=== PATIENT | male | born 1925 | race Caucasian/White ===

== ENCOUNTER → 2016-12-10 | Outpatient (CLI) | payer MEDICARE ==
[2016-12-10 17:18] LABS: Anion Gap 11 mmol/L; Blood Urea Nitrogen 27 mg/dL (9-20); Calcium 9.4 mg/dL (8.4-10.2); Carbon Dioxide 26 mmol/L (22-30); Chloride 105 mmol/L (98-107); Glucose 90 mg/dL (74-99); Non-African American GFR(MDRD) 57 (>60 ml/min/1.73 sqM); Potassium 4.9 mmol/L (3.5-5.1); Sodium 142 mmol/L (137-145)
--- NOTE | 2016-12-11 08:07 | XR ---
EXAMINATION TYPE: XR chest 2V DATE OF EXAM: 12/10/2016 4:32 PM COMPARISON: 09/20/2016 INDICATION: Shortness of breath TECHNIQUE: Single frontal view of the chest is obtained. FINDINGS: The heart size is normal. The pulmonary vasculature is normal. There is atelectasis of the right middle lobe. Small right pleural effusion is present. IMPRESSION: 1. Right middle lobe atelectasis with a small right pleural effusion
== END | disposition home or self-care (01) ==
LOC: RADXRMAIN 16:09
PROVIDERS: ATTEND Internal Medicine Cardiovascular Disease
DX: J90 Pleural effusion, not elsewhere classified (principal); J98.11 Atelectasis; R06.02 Shortness of breath
CPT/HCPCS: 36415; 71020; 80048; 83880

== ENCOUNTER 2016-12-21 19:47 | Inpatient (IN) | payer MEDICARE ==
[2016-12-21] MEDS ORDERED: ALBUTEROL NEBULIZED 2.5 MG/3 ML INHALATION STA (19:58)
[2016-12-21] MEDS ORDERED: methylPREDNISolone SOD SUCCI 125 MG/2 ML VIAL IV STA (19:58)
[2016-12-21] MEDS ORDERED: IPRATROPIUM 0.5 MG/2.5 ML NEBU INHALATION STA (19:58)
[2016-12-21] MEDS ORDERED: SODIUM CHLORIDE 0.9% 1,000 ML IV STA (19:58)
--- NOTE | 2016-12-21 20:15 | ED ---
General Adult HPI - General Chief complaint: Shortness of Breath Stated complaint: Poss Pneumonia Time Seen by Provider: 12/21/16 19:58 Source: patient, RN notes reviewed, old records reviewed Mode of arrival: wheelchair Limitations: no limitations - History of Present Illness Initial comments: This is an 89-year-old male the ER for evaluation of severe shortness of breath. Patient denies chest pain no travel history of fevers, increased cough and congestion. Patient has history of asthma and severe. She comes in today with sore shortness of breath increasing for the past day and a half worse with exertion worse with activity. Patient is doing Blanca as directed with no help - Related Data Home Medications Medication Instructions Recorded Confirmed Aspirin EC [Ecotrin] 325 mg PO DAILY 09/14/16 12/21/16 Benazepril HCl 40 mg PO DAILY 09/14/16 12/21/16 Cholecalciferol [Vitamin D3] 2,000 unit PO HS 09/14/16 12/21/16 Docusate [Colace] 100 mg PO HS 09/14/16 12/21/16 Ibuprofen [Motrin] 600 mg PO BID 09/14/16 12/21/16 Simvastatin [Zocor] 40 mg PO HS 09/14/16 12/21/16 Zinc 50 mg PO DAILY 09/14/16 12/21/16 Glimepiride [Amaryl] 1 mg PO HS 12/21/16 12/21/16 Previous Rx's Medication Instructions Recorded Metoprolol Succinate (ER) [Toprol 50 mg PO DAILY #30 tab.er.24h 09/17/16 XL] amLODIPine [Norvasc] 5 mg PO HS #30 tab 09/17/16 Furosemide [Lasix] 20 mg PO DAILY #30 tab 09/21/16 Ipratropium-Albuterol Nebulize 3 ml INHALATION RT-QID ampul.neb 09/21/16 [Duoneb 0.5 mg-3 mg/3 ml Soln] Allergies Allergy/AdvReac Type Severity Reaction Status Date / Time No Known Allergies Allergy Verified 12/21/16 20:14 Review of Systems ROS Statement: Those systems with pertinent positive or pertinent negative responses have been documented in the HPI. ROS Other: All systems not noted in ROS Statement are negative. Past Medical History Past Medical History: Asthma, Hypertension, Pneumonia History of Any Multi-Drug Resistant Organisms: None Reported Past Surgical History: Ear Surgery, Joint Replacement, Pacemaker Additional Past Surgical History / Comment(s): valve replacement, bilateral knee , ear drum surgery Past Anesthesia/Blood Transfusion Reactions: No Reported Reaction Type of Cardiac Device: Permanent Pacemaker Device Placement Date:: 09/16/2016 Past Psychological History: No Psychological Hx Reported Smoking Status: Former smoker Past Alcohol Use History: None Reported Past Drug Use History: None Reported - Past Family History Mother Family Medical History: Cancer General Exam Limitations: no limitations General appearance: alert, anxious, in distress Head exam: Present: atraumatic, normocephalic, normal inspection Eye exam: Present: normal appearance, PERRL, EOMI. Absent: scleral icterus, conjunctival injection, periorbital swelling ENT exam: Present: normal exam, mucous membranes moist Neck exam: Present: normal inspection. Absent: tenderness, meningismus, lymphadenopathy Respiratory exam: Present: normal lung sounds bilaterally, respiratory distress , wheezes, accessory muscle use, decreased breath sounds, prolonged expiratory. Absent: rales, rhonchi, stridor Cardiovascular Exam: Present: regular rate, normal rhythm, normal heart sounds. Absent: systolic murmur, diastolic murmur, rubs, gallop, clicks GI/Abdominal exam: Present: soft, normal bowel sounds. Absent: distended, tenderness, guarding, rebound, rigid Extremities exam: Present: normal inspection, full ROM, normal capillary refill. Absent: tenderness, pedal edema, joint swelling, calf tenderness Back exam: Present: normal inspection Neurological exam: Present: alert, oriented X3, CN II-XII intact Psychiatric exam: Present: normal affect, normal mood Skin exam: Present: warm, dry, intact, normal color. Absent: rash Course Vital Signs 12/21/16 12/21/16 12/21/16 19:53 20:06 20:21 Temperature 97.6 F Pulse Rate 72 78 77 Respiratory 28 H Rate Blood Pressure 126/79 O2 Sat by Pulse 91 L Oximetry 12/21/16 12/21/16 12/21/16 20:50 21:11 21:33 Temperature Pulse Rate 80 88 97 Respiratory 28 H Rate Blood Pressure 121/56 O2 Sat by Pulse 95 Oximetry - Reevaluation(s) Reevaluation #1: 12/21/16 21:40 Patient with minimal improvement in her breathing treatment EKG Findings - EKG Comments: EKG Findings:: EKG shows paced rhythm rate of 78, 150, QRS 170, QTc 508 Medical Decision Making - Medical Decision Making 10 and male here for evaluation of shortness of breath, minimal improvement a prolonged breathing treatment, patient days and increased oxygen, possible bipolar, at this time we will hold, patient will be limited for continued breathing treatments, antibiotics for pneumonia - Lab Data Result diagrams: 12/21/16 20:15 12/21/16 20:15 Lab Results 12/21/16 12/21/16 12/21/16 Range/Units 20:15 20:15 20:15 WBC 7.4 (3.8-10.6) k/uL RBC 4.29 L (4.30-5.90) m/uL Hgb 12.9 L (13.0-17.5) gm/dL Hct 39.2 (39.0-53.0) % MCV 91.2 (80.0-100.0) fL MCH 30.0 (25.0-35.0) pg MCHC 32.9 (31.0-37.0) g/dL RDW 18.2 H (11.5-15.5) % Plt Count 155 (150-450) k/uL Neutrophils % 77 % Lymphocytes % 10 % Monocytes % 5 % Eosinophils % 5 % Basophils % 1 % Neutrophils # 5.7 (1.3-7.7) k/uL Lymphocytes # 0.7 L (1.0-4.8) k/uL Monocytes # 0.4 (0-1.0) k/uL Eosinophils # 0.4 (0-0.7) k/uL Basophils # 0.1 (0-0.2) k/uL Anisocytosis Slight PT (9.0-12.0) sec INR (<1.1) APTT (22.0-30.0) sec Sodium 144 (137-145) mmol/L Potassium 4.7 (3.5-5.1) mmol/L Chloride 104 (98-107) mmol/L Carbon Dioxide 28 (22-30) mmol/L Anion Gap 12 mmol/L BUN 26 H (9-20) mg/dL Creatinine 1.31 H (0.66-1.25) mg/dL Est GFR (MDRD) Af Amer >60 (>60 ml/min/1.73 sqM) Est GFR (MDRD) Non-Af 52 (>60 ml/min/1.73 sqM) Glucose 130 H (74-99) mg/dL Calcium 9.2 (8.4-10.2) mg/dL Magnesium 2.0 (1.6-2.3) mg/dL Total Bilirubin 1.2 (0.2-1.3) mg/dL AST 24 (17-59) U/L ALT 27 (21-72) U/L Alkaline Phosphatase 77 (38-126) U/L Total Creatine Kinase 109 (55-170) U/L CK-MB (CK-2) 2.4 (0.0-2.4) ng/mL CK-MB (CK-2) Rel Index 2.2 Troponin I <0.012 (0.000-0.034) ng/mL NT-Pro-B Natriuret Pep pg/mL Total Protein 7.5 (6.3-8.2) g/dL Albumin 3.8 (3.5-5.0) g/dL 12/21/16 12/21/16 Range/Units 20:15 20:15 WBC (3.8-10.6) k/uL RBC (4.30-5.90) m/uL Hgb (13.0-17.5) gm/dL Hct (39.0-53.0) % MCV (80.0-100.0) fL MCH (25.0-35.0) pg MCHC (31.0-37.0) g/dL RDW (11.5-15.5) % Plt Count (150-450) k/uL Neutrophils % % Lymphocytes % % Monocytes % % Eosinophils % % Basophils % % Neutrophils # (1.3-7.7) k/uL Lymphocytes # (1.0-4.8) k/uL Monocytes # (0-1.0) k/uL Eosinophils # (0-0.7) k/uL Basophils # (0-0.2) k/uL Anisocytosis PT 11.4 (9.0-12.0) sec INR 1.1 (<1.1) APTT 23.4 (22.0-30.0) sec Sodium (137-145) mmol/L Potassium (3.5-5.1) mmol/L Chloride (98-107) mmol/L Carbon Dioxide (22-30) mmol/L Anion Gap mmol/L BUN (9-20) mg/dL Creatinine (0.66-1.25) mg/dL Est GFR (MDRD) Af Amer (>60 ml/min/1.73 sqM) Est GFR (MDRD) Non-Af (>60 ml/min/1.73 sqM) Glucose (74-99) mg/dL Calcium (8.4-10.2) mg/dL Magnesium (1.6-2.3) mg/dL Total Bilirubin (0.2-1.3) mg/dL AST (17-59) U/L ALT (21-72) U/L Alkaline Phosphatase (38-126) U/L Total Creatine Kinase (55-170) U/L CK-MB (CK-2) (0.0-2.4) ng/mL CK-MB (CK-2) Rel Index Troponin I (0.000-0.034) ng/mL NT-Pro-B Natriuret Pep 2320 pg/mL Total Protein (6.3-8.2) g/dL Albumin (3.5-5.0) g/dL - Radiology Data Radiology results: report reviewed (Chest x-ray is positive for pneumonia), image reviewed Critical Care Time Critical Care Time: Yes Total Critical Care Time: 31 Disposition Clinical Impression: Diastolic CHF, acute on chronic, HTN (hypertension), Acute respiratory failure , Congestive heart failure, Acute exacerbation of chronic obstructive airways disease, Community acquired pneumonia, Hypoxia Disposition: ADMITTED IP TO THIS HOSP Condition: Serious Referrals: Donal Greenberg MD [Primary Care Provider] - 1-2 days
[2016-12-21 20:40] LABS: ALT 27 U/L (21-72); AST 24 U/L (17-59); Alkaline Phosphatase 77 U/L (38-126); Anion Gap 12 mmol/L; Anisocytosis Slight; Basophils # (A) 0.1 k/uL (0-0.2); Basophils % (A) 1 %; Blood Urea Nitrogen 26 mg/dL (9-20); CH 29.6; CHCM 32.7; Calcium 9.2 mg/dL (8.4-10.2); Carbon Dioxide 28 mmol/L (22-30); Chloride 104 mmol/L (98-107); Eosinophils # (A) 0.4 k/uL (0-0.7); Eosinophils % (A) 5 %; Glucose 130 mg/dL (74-99); HCT 39.2 % (39.0-53.0); HDW 3.12; HGB 12.9 gm/dL (13.0-17.5); Luc # (Auto) 0.16; Luc % (Auto) 2; Lymphocytes # (A) 0.7 k/uL (1.0-4.8); Lymphocytes % (A) 10 %; MCHC 32.9 g/dL (31.0-37.0); MCV 91.2 fL (80.0-100.0); Mean Platelet Volume 8.8; Monocytes # (A) 0.4 k/uL (0-1.0); Monocytes % (A) 5 %; Neutrophils # (A) 5.7 k/uL (1.3-7.7); Neutrophils % (A) 77 %; Non-African American GFR(MDRD) 52 (>60 ml/min/1.73 sqM); Potassium 4.7 mmol/L (3.5-5.1); RBC 4.29 m/uL (4.30-5.90); RDW 18.2 % (11.5-15.5); Sodium 144 mmol/L (137-145); Total Bilirubin 1.2 mg/dL (0.2-1.3); Total Protein 7.5 g/dL (6.3-8.2); WBC 7.4 k/uL (3.8-10.6); WBC (Perox) 7.47
[2016-12-21 20:43] LABS: INR 1.1 (<1.1); Partial Thromboplastin Time 23.4 sec (22.0-30.0); Prothrombin Time 11.4 sec (9.0-12.0)
[2016-12-21 20:49] LABS: Creatine Kinase 109 U/L (55-170)
[2016-12-21 21:02] LABS: Creatine Kinase MB 2.4 ng/mL (0.0-2.4); Troponin I <0.012 ng/mL (0.000-0.034)
--- NOTE | 2016-12-21 21:35 | XR ---
EXAMINATION TYPE: XR chest 2V DATE OF EXAM: 12/21/2016 9:26 PM COMPARISON: 12/10/2016 HISTORY: Shortness of breath TECHNIQUE: Frontal and lateral views of the chest are obtained. FINDINGS: Scattered senescent parenchymal changes noted. Hyperinflation compatible with COPD. Increasing right basilar opacity may reflect increasing infiltrate and/or atelectasis. Small bilatera l effusions. Calcified plaque left lung base. Pulmonary venous congestion without overt failure. Wilbert tional scattered plaques. Heart size is stable. Mediastinal structures are stable and grossly unremarkable. No evidence for hilar prominence. Degenerative changes dorsal spine. IMPRESSION: 1. Increasing right basilar opacity may reflect increasing infiltrate and/or atelectasis. Small bilat eral effusions. Calcified plaque left lung base. Pulmonary venous congestion without overt failure.
[2016-12-21] MEDS ORDERED: LEVOFLOXACIN 750MG-D5W PMX 750 MG in DEXTROSE/WATER 1 150ML.BAG IVPB STA (21:37)
[2016-12-21] MEDS ORDERED: PNEUMONIA PROTOCOL UTILIZED 1 EACH MISC PO PRN (21:37)
[2016-12-21] MEDS ORDERED: PIPERACILLIN-TAZOBACTAM 3.375 GM in DEXTROSE/WATER 1 50ML.BAG IVPB STA ×2 (21:37→23:57)
--- NOTE | 2016-12-22 07:47 | XR ---
EXAMINATION TYPE: XR chest 2V DATE OF EXAM: 12/22/2016 7:16 AM COMPARISON: Prior chest x-ray from yesterday. HISTORY: Pneumonia progress study. TECHNIQUE: Frontal and lateral views of the chest are obtained. FINDINGS: Sternal wires are present. 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 Cardiac silhouette size is stable and mildly enlarged with dual lead pacemaker. There is persistent small right greater than le ft pleural effusions. There is associated bibasilar atelectasis and/or infiltrate. Left basilar calci fied pleural plaque is redemonstrated Upper lungs remain clear without pneumothorax. The osseous stru ctures are intact. IMPRESSION: Mild cardiomegaly with small right greater than left pleural effusions and associated bi basilar atelectasis and/or infiltrate all redemonstrated.
[2016-12-22] MEDS ORDERED: IPRATROPIUM-ALBUTEROL 3 ML NEB INHALATION SCH (08:00)
[2016-12-22] MEDS: ENOXAPARIN 40 MG/0.4 ML SYRINGE SQ SCH (08:17)
[2016-12-22] MEDS: PIPERACILLIN-TAZOBACTAM 3.375 GM in DEXTROSE/WATER 1 50ML.BAG IVPB SCH ×3 (08:17→23:58)
[2016-12-22] MEDS ORDERED: IPRATROPIUM-ALBUTEROL 3 ML NEB INHALATION PRN (08:20)
[2016-12-22] MEDS: methylPREDNISolone SOD SUCCI 40 MG/ML 1 ML VIAL IV SCH ×3 (09:09→23:58)
[2016-12-22 09:23] VITALS: BMI 29.0
[2016-12-22 12:01] LABS: Glucose,Whole Blood 297 mg/dL (75-99)
[2016-12-22] MEDS: INSULIN LISPRO (humaLOG) 300 UNIT/3 ML VIAL SQ SCH ×3 (12:18→21:16)
[2016-12-22] MEDS: IPRATROPIUM-ALBUTEROL 3 ML NEB INHALATION SCH ×3 (14:09→20:26)
[2016-12-22 16:51] LABS: Glucose,Whole Blood 177 mg/dL (75-99)
--- NOTE | 2016-12-22 18:20 | HP ---
DATE OF ADMISSION: 12/21/2016 CHIEF COMPLAINT: Difficulty breathing. HISTORY OF PRESENT ILLNESS: This is another admission for this 89-year-old white male. He started to have difficulty breathing and came to the emergency room, where he was found to have bronchopneumonia and small bilateral pleural effusions. He has had no fever, chills, hemoptysis, chest pain, etc. REVIEW OF SYSTEMS: He has had no complaints other than the above-mentioned. He does have chronic asthma. Past medical history, family history, and personal and social histories reveal that he is NOT ALLERGIC TO ANY MEDICATIONS. He is on: 1. Metoprolol ER 50 mg once a day. 2. Updrafts with ipratropium and albuterol. 3. Lasix 20 mg once a day. 4. Simvastatin 40 at bedtime. 5. Benazepril 40 mg once a day. 6. Amlodipine 5 mg once a day. 7. Ecotrin 1 daily. 8. Vitamin D3 2000 units a day. The remainder of his history is unremarkable. He used to smoke but does not any longer. PHYSICAL EXAMINATION: Blood pressure 140/86 with a pulse of 94 and regular, respirations of 46 and temperature 98. In general he appeared to be dyspneic and in no acute distress. Skin is warm and dry. Lymph nodes are not enlarged. Head, ears, eyes, nose, mouth and throat were normal. Neck veins are not distended. Thyroid is not enlarged. Chest demonstrated decreased breath sounds throughout with wheezing, rales and rhonchi and a prolonged expiratory phase. Cardiac exam demonstrated tachycardia. There are no murmurs or extra sounds. Abdomen is soft, nontender and slightly protuberant. There are no masses or visceromegaly. Extremities are normal. Neurologically he is intact. He is admitted to the hospital with the diagnoses: 1. Exacerbation of chronic obstructive pulmonary disease. 2. Reactive airway disease. 3. Small bilateral pleural effusions. 4. Probable pneumonitis. PLAN: 1. Bed rest. 2. IV fluids. 3. IV and inhaled steroids. 4. Antibiotics.
--- NOTE | 2016-12-22 18:22 | PN ---
DATE OF SERVICE: 12/22/2016 CHIEF COMPLAINT: Exacerbation of COPD and pneumonia. HISTORY OF PRESENT ILLNESS: This gentleman is feeling a little bit better already. He is a little bit less short of breath. He has had no chest pain, fever, chills, etc. PHYSICAL EXAMINATION: Breath sounds are diminished and he has wheezing on expiration and prolonged expiratory phase. Cardiac exam is normal. IMPRESSION: 1. Exacerbation of chronic obstructive pulmonary disease. 2. Pneumonitis. 3. Pleural effusions. 4. Congestive heart failure. PLAN: Continue updrafts, steroids and activity as tolerated.
[2016-12-22] MEDS: DOCUSATE 100 MG CAP PO SCH (20:02)
[2016-12-22] MEDS: ATORVASTATIN 20 MG TAB PO SCH (20:02)
[2016-12-22] MEDS: CHOLECALCIFEROL 1,000 UNIT TAB PO SCH (20:02)
[2016-12-22] MEDS: IBUPROFEN 600 MG TAB PO SCH (20:03)
[2016-12-22 20:47] LABS: Glucose,Whole Blood 198 mg/dL (75-99)
[2016-12-22] MEDS ORDERED: LEVOFLOXACIN 750MG-D5W PMX 750 MG in DEXTROSE/WATER 1 150ML.BAG IVPB SCH (21:00)
[2016-12-22] MEDS ORDERED: amLODIPine 5 MG TAB PO SCH (21:00)
[2016-12-22] MEDS: GLIMEPIRIDE 1 MG TAB PO SCH (21:16)
[2016-12-23] MEDS: IPRATROPIUM-ALBUTEROL 3 ML NEB INHALATION SCH ×4 (07:22→20:11)
[2016-12-23] MEDS: INSULIN LISPRO (humaLOG) 300 UNIT/3 ML VIAL SQ SCH ×4 (07:43→21:25)
[2016-12-23] MEDS: methylPREDNISolone SOD SUCCI 40 MG/ML 1 ML VIAL IV SCH ×3 (07:44→23:23)
[2016-12-23 08:00] LABS: Glucose,Whole Blood 198 mg/dL (75-99)
[2016-12-23] MEDS: IBUPROFEN 600 MG TAB PO SCH ×2 (08:27→22:17)
[2016-12-23] MEDS: ASPIRIN 325 MG TAB PO SCH (08:29)
[2016-12-23] MEDS: PIPERACILLIN-TAZOBACTAM 3.375 GM in DEXTROSE/WATER 1 50ML.BAG IVPB SCH ×2 (08:29→21:50)
[2016-12-23] MEDS: ENOXAPARIN 40 MG/0.4 ML SYRINGE SQ SCH (08:30)
[2016-12-23] MEDS ORDERED: FUROSEMIDE 20 MG TAB PO SCH (09:00)
[2016-12-23] MEDS ORDERED: METOPROLOL SUCCINATE (ER) 50 MG TAB.ER.24H PO SCH (09:00)
[2016-12-23] MEDS ORDERED: LISINOPRIL 20 MG TAB PO SCH (09:00)
[2016-12-23 09:58] LABS: Anisocytosis Slight; Basophils % (A) 0 %; CH 29.6; CHCM 31.4; Eosinophils % (A) 0 %; HCT 38.3 % (39.0-53.0); HDW 2.96; HGB 12.1 gm/dL (13.0-17.5); Hypochromasia Slight; Luc # (Auto) 0.07; Luc % (Auto) 0; Lymphocytes # (A) 0.5 k/uL (1.0-4.8); Lymphocytes % (A) 3 %; MCH 29.9 pg (25.0-35.0); MCHC 31.5 g/dL (31.0-37.0); MCV 95.1 fL (80.0-100.0); Macrocytosis Slight; Monocytes # (A) 0.4 k/uL (0-1.0); Monocytes % (A) 3 %; Neutrophils # (A) 14.4 k/uL (1.3-7.7); Neutrophils % (A) 93 %; RBC 4.03 m/uL (4.30-5.90); RDW 18.7 % (11.5-15.5); WBC 15.4 k/uL (3.8-10.6)
[2016-12-23] MEDS ORDERED: FUROSEMIDE 10 MG/ML 4 ML VIAL IV STA (09:59)
[2016-12-23 10:04] LABS: Calcium 9.3 mg/dL (8.4-10.2); Magnesium 2.1 mg/dL (1.6-2.3); Potassium 5.2 mmol/L (3.5-5.1); Total Bilirubin 1.1 mg/dL (0.2-1.3); Total Protein 7.6 g/dL (6.3-8.2)
[2016-12-23] MEDS ORDERED: LEVOFLOXACIN 500 MG TAB PO SCH (10:15)
[2016-12-23] MEDS ORDERED: RX INFO: IV CONTRAST WAS GIVEN 1 EACH MISC MISCELLANE PRN (10:33)
[2016-12-23] MEDS: SPIRONOLACTONE 25 MG TAB PO SCH (10:35)
--- NOTE | 2016-12-23 13:00 | NM ---
EXAMINATION TYPE: NM pul vent and perfuse DATE OF EXAM: 12/23/2016 12:52 PM COMPARISON: Correlation radiographs 12/22/2016 HISTORY: 89-year-old male increased shortness of breath TECHNIQUE: Utilizing inhalation of 63.3 mCi Tc 99m DTPA aerosol and intravenous injection of 5.5 mCi of Tc 99m MAA, ventilation and perfusion images are acquired post injection in multiple projections. FINDINGS: There is clumping of inhaled tracer within the central airways. There is a moderate-sized matched guille tilation and perfusion defect involving the posterior right base with corresponding chest x-ray abnor mality. Otherwise, no mismatched perfusion defects seen. IMPRESSION: Triple matched defect at the right base. This qualifies as an intermediate probability for pulmonary embolism based on modified PIOPED criteria.
[2016-12-23 13:03] LABS: Glucose,Whole Blood 274 mg/dL (75-99)
[2016-12-23] MEDS: ZINC SULFATE 220 MG CAP PO SCH (13:20)
--- NOTE | 2016-12-23 14:40 | US ---
EXAMINATION TYPE: US venous doppler duplex LE DATE OF EXAM: 12/23/2016 2:26 PM COMPARISON: See PACS bilateral venous ultrasound August 01, 2012. CLINICAL HISTORY: Rule out a DVT. Swelling SIDE PERFORMED: Bilateral VESSELS IMAGED: External Iliac Vein (EIV) Common Femoral Vein Deep Femoral Vein Greater Saphenous Vein * Femoral Vein Popliteal Vein Small Saphenous Vein * Proximal Calf Veins (* superficial vessels) TECHNOLOGIST IMPRESSION: wnl Right Leg: Negative for DVT Left Leg: Negative for DVT Satisfactory color flow, phasicity, and compressibility is seen in the bilateral lower extremities. IMPRESSION: No ultrasound evidence for acute DVT in either lower extremity.
[2016-12-23 17:09] LABS: Glucose,Whole Blood 100 mg/dL (75-99)
[2016-12-23] MEDS: CARVEDILOL 3.125 MG TAB PO SCH (17:17)
[2016-12-23] MEDS: BUDESONIDE 0.5 MG/2 ML NEBU INHALATION SCH ×2 (20:11)
--- NOTE | 2016-12-23 20:57 | PN ---
CHIEF COMPLAINT: COPD and congestive heart failure. HISTORY OF PRESENT ILLNESS: This gentleman is improved slightly, but we are going to increase his program. PHYSICAL EXAM: He still has decreased breath sounds with occasional rales and rhonchi and occasional wheezes. Cardiac is normal. There is no edema. IMPRESSION: 1. Exacerbation of chronic obstructive pulmonary disease. 2. Congestive heart failure. PLAN: 1. Change beta kayla to Coreg. 2. Add Aldactone.
[2016-12-23] MEDS ORDERED: MONTELUKAST 10 MG TAB PO SCH (21:00)
[2016-12-23] MEDS: MONTELUKAST 10 MG TAB PO SCH (21:46)
[2016-12-23] MEDS: ATORVASTATIN 20 MG TAB PO SCH (21:48)
[2016-12-23] MEDS: DOCUSATE 100 MG CAP PO SCH (21:48)
[2016-12-23] MEDS: CHOLECALCIFEROL 1,000 UNIT TAB PO SCH (21:48)
[2016-12-23] MEDS: ENOXAPARIN 30 MG/0.3 ML SYRINGE SQ SCH (21:49)
[2016-12-23 21:50] LABS: Glucose,Whole Blood 74 mg/dL (75-99)
[2016-12-23] MEDS: GLIMEPIRIDE 1 MG TAB PO SCH (22:10)
[2016-12-24] MEDS: BUDESONIDE 0.5 MG/2 ML NEBU INHALATION SCH ×2 (07:06→18:38)
[2016-12-24] MEDS: IPRATROPIUM-ALBUTEROL 3 ML NEB INHALATION SCH ×4 (07:06→18:38)
[2016-12-24 07:44] LABS: Glucose,Whole Blood 159 mg/dL (75-99)
[2016-12-24] MEDS: INSULIN LISPRO (humaLOG) 300 UNIT/3 ML VIAL SQ SCH ×4 (07:47→21:43)
[2016-12-24] MEDS: methylPREDNISolone SOD SUCCI 40 MG/ML 1 ML VIAL IV SCH ×3 (07:48→23:27)
[2016-12-24] MEDS: CARVEDILOL 3.125 MG TAB PO SCH ×2 (07:48→16:53)
[2016-12-24] MEDS: IBUPROFEN 600 MG TAB PO SCH ×2 (08:44→21:13)
[2016-12-24] MEDS: ASPIRIN 325 MG TAB PO SCH (08:46)
[2016-12-24] MEDS: ENOXAPARIN 30 MG/0.3 ML SYRINGE SQ SCH ×2 (08:46→21:22)
[2016-12-24] MEDS: FUROSEMIDE 40 MG TAB PO SCH (08:46)
[2016-12-24] MEDS: PIPERACILLIN-TAZOBACTAM 3.375 GM in DEXTROSE/WATER 1 50ML.BAG IVPB SCH ×2 (08:47→21:22)
[2016-12-24] MEDS ORDERED: ENOXAPARIN 30 MG/0.3 ML SYRINGE SQ SCH (09:00)
[2016-12-24 10:06] LABS: Calcium 9.4 mg/dL (8.4-10.2); Potassium 5.3 mmol/L (3.5-5.1); Total Bilirubin 1.1 mg/dL (0.2-1.3); Total Protein 7.6 g/dL (6.3-8.2)
[2016-12-24] MEDS: LISINOPRIL 20 MG TAB PO SCH (10:17)
[2016-12-24] MEDS: SPIRONOLACTONE 25 MG TAB PO SCH (10:29)
[2016-12-24] MEDS: amLODIPine 2.5 MG TAB PO SCH (10:30)
[2016-12-24] MEDS: ZINC SULFATE 220 MG CAP PO SCH (11:14)
--- NOTE | 2016-12-24 11:24 | P.CNPUL ---
History of Present Illness Consult date: 12/24/16 Requesting physician: Donal Greenberg Reason for consult: COPD Chief complaint: Shortness of breath History of present illness: This is an 89-year-old male who is being examined and evaluated today on the fourth floor. The patient came in to the emergency room on the for severe shortness of breath. The patient has a history of chronic persistent asthma. Shortness of breath gets worse with activity and his breathing treatments have not been helping. Patient was subsequently admitted to the hospital with acute exacerbation of COPD, community-acquired pneumonia with hypoxia, diastolic congestive heart failure and acute respiratory failure. Patient underwent a pulmonary perfusion test there was a intermediate probability for pulmonary embolism based on PIOPED criteria. The patient is currently on Lovenox. Doppler studies of bilateral lower extremities were both negative for DVTs. Upon examination the patient is resting up in bed on 3 L of oxygen, the patient does not use oxygen at home. The patient states he continues to have an occasional cough with clear sputum. Review of Systems 14 point review of systems completed and is negative other than what is noted in the HPI. Past Medical History Past Medical History: Asthma, Hypertension, Pneumonia History of Any Multi-Drug Resistant Organisms: None Reported Past Surgical History: Ear Surgery, Joint Replacement, Pacemaker Additional Past Surgical History / Comment(s): valve replacement, bilateral knee , ear drum surgery Past Anesthesia/Blood Transfusion Reactions: No Reported Reaction Type of Cardiac Device: Permanent Pacemaker Device Placement Date:: 09/16/2016 Past Psychological History: No Psychological Hx Reported Smoking Status: Former smoker Past Alcohol Use History: None Reported Past Drug Use History: None Reported - Past Family History Mother Family Medical History: Cancer Medications and Allergies Home Medications Medication Instructions Recorded Confirmed Type Aspirin EC [Ecotrin] 325 mg PO DAILY 09/14/16 12/21/16 History Benazepril HCl 40 mg PO DAILY 09/14/16 12/21/16 History Cholecalciferol [Vitamin D3] 2,000 unit PO HS 09/14/16 12/21/16 History Docusate [Colace] 100 mg PO HS 09/14/16 12/21/16 History Ibuprofen [Motrin] 600 mg PO BID 09/14/16 12/21/16 History Simvastatin [Zocor] 40 mg PO HS 09/14/16 12/21/16 History Zinc 50 mg PO DAILY 09/14/16 12/21/16 History Glimepiride [Amaryl] 1 mg PO HS 12/21/16 12/21/16 History Allergies Allergy/AdvReac Type Severity Reaction Status Date / Time No Known Allergies Allergy Verified 12/21/16 20:14 Physical Exam Vitals: Vital Signs Temp Pulse Pulse Resp BP Pulse Ox 12/24/16 09:50 95 12/24/16 07:17 76 12/24/16 07:00 96.3 F L 71 67 20 144/67 98 12/23/16 22:07 98.3 F 77 16 123/75 98 12/23/16 20:11 88 12/23/16 15:28 86 12/23/16 15:15 86 12/23/16 15:00 96.1 F L 76 20 117/62 97 12/23/16 11:23 88 Intake and Output 12/23/16 12/24/16 12/24/16 22:59 06:59 14:59 Intake Total 0 100 Balance 0 100 Intake: Oral 0 100 Other: Voiding Method Toilet Toilet # Voids 1 4 Weight 82.5 kg GENERAL EXAM: Alert, active, comfortable in no apparent distress. HEAD: Normocephalic. EYES: Normal reaction of pupils, equal size. NOSE: Clear with pink turbinates. THROAT: No erythema or exudates. NECK: No masses, no JVD. CHEST: No chest wall deformity. LUNGS: Lung sounds noted to be decreased throughout, with expiratory wheezing and rhonchi. CVS: S1 and S2 normal with no audible mumurs, regular rhythm. ABDOMEN: No hepatosplenomegaly, normal bowel sounds, no guarding or rigidity. EXTREMITIES: No edema noted, pedal pulses palpable. SKIN: No rashes CENTRAL NERVOUS SYSTEM: No focal deficits, tone is normal in all 4 extremities. Results - Laboratory Findings CBC and BMP: 12/23/16 08:52 12/24/16 08:22 PT/INR, D-dimer PT 11.4 sec (9.0-12.0) 12/21/16 20:15 INR 1.1 (<1.1) 12/21/16 20:15 D-Dimer 1.01 mg/L FEU (<0.60) H 12/23/16 09:30 Abnormal lab findings: Abnormal Labs 12/22/16 12/22/1617 11:59 16:49 20:41 WBC RBC Hgb Hct RDW Neutrophils # Lymphocytes # D-Dimer Potassium BUN Creatinine Glucose POC Glucose (mg/dL) 297 H 177 H 198 H 12/23/16 12/23/16 12/23/16 07:18 08:52 08:52 WBC 15.4 H RBC 4.03 L Hgb 12.1 L Hct 38.3 L RDW 18.7 H Neutrophils # 14.4 H Lymphocytes # 0.5 L D-Dimer Potassium 5.2 H BUN 60 H Creatinine 2.36 H Glucose 262 H POC Glucose (mg/dL) 198 H 12/23/16 12/23/16 12/23/16 09:30 13:00 17:04 WBC RBC Hgb Hct RDW Neutrophils # Lymphocytes # D-Dimer 1.01 H Potassium BUN Creatinine Glucose POC Glucose (mg/dL) 274 H 100 H 12/23/16 12/24/16 12/24/16 21:24 07:28 08:22 WBC RBC Hgb Hct RDW Neutrophils # Lymphocytes # D-Dimer Potassium 5.3 H BUN 68 H Creatinine 2.29 H Glucose 208 H POC Glucose (mg/dL) 74 L 159 H - Diagnostic Findings Chest x-ray: report reviewed CT scan - chest: report reviewed U/S of Legs: report reviewed Assessment and Plan Plan: Assessment Acute exacerbation of chronic obstructive pulmonary disease Chronic persistent asthma with acute exacerbation Small bilateral pleural effusions Probable community-acquired pneumonia History of hypertension Plan Medications have been reviewed and will be continued as ordered. We will continue with the IV steroids, antibiotics, and nebulizer treatments as well as supplemental oxygen. We will continue to monitor labs and adjust treatment as necessary. I performed an examination of the patient and discussed their management with the nurse practitioner. I have reviewed the nurse practitioner's note and agree with the documented findings and plan of care.
[2016-12-24 12:03] LABS: Glucose,Whole Blood 223 mg/dL (75-99)
[2016-12-24 17:00] LABS: Glucose,Whole Blood 110 mg/dL (75-99)
[2016-12-24 20:56] LABS: Glucose,Whole Blood 157 mg/dL (75-99)
--- NOTE | 2016-12-24 20:58 | PN ---
DATE OF SERVICE: 12/24/2016 CHIEF COMPLAINT: Difficulty breathing. HISTORY OF PRESENT ILLNESS: The gentleman is doing a little bit better. He has diuresed some and his breathing has improved. He is able to ambulate a little further without oxygen. PHYSICAL EXAMINATION: His chest is fairly clear now. There is no wheezing and there are no rales or rhonchi. Cardiac exam is normal. ABDOMEN: Soft, nontender. IMPRESSION: 1. Exacerbation of chronic obstructive pulmonary disease. 2. Congestive heart failure. PLAN: Continue with diuresis and increasing activity.
[2016-12-24] MEDS: GLIMEPIRIDE 1 MG TAB PO SCH (21:14)
[2016-12-24] MEDS: MONTELUKAST 10 MG TAB PO SCH (21:14)
[2016-12-24] MEDS: CHOLECALCIFEROL 1,000 UNIT TAB PO SCH (21:14)
[2016-12-24] MEDS: DOCUSATE 100 MG CAP PO SCH (21:14)
[2016-12-24] MEDS: ATORVASTATIN 20 MG TAB PO SCH (21:14)
[2016-12-25 06:57] LABS: Glucose,Whole Blood 139 mg/dL (75-99)
[2016-12-25] MEDS: IPRATROPIUM-ALBUTEROL 3 ML NEB INHALATION SCH ×4 (07:06→19:37)
[2016-12-25] MEDS: BUDESONIDE 0.5 MG/2 ML NEBU INHALATION SCH ×2 (07:06→19:37)
[2016-12-25] MEDS: PIPERACILLIN-TAZOBACTAM 3.375 GM in DEXTROSE/WATER 1 50ML.BAG IVPB SCH ×2 (07:49→20:04)
[2016-12-25] MEDS: methylPREDNISolone SOD SUCCI 40 MG/ML 1 ML VIAL IV SCH ×2 (07:50→17:31)
[2016-12-25] MEDS: INSULIN LISPRO (humaLOG) 300 UNIT/3 ML VIAL SQ SCH ×4 (07:50→21:17)
[2016-12-25] MEDS: LEVOFLOXACIN 500 MG TAB PO SCH (07:51)
[2016-12-25] MEDS: CARVEDILOL 3.125 MG TAB PO SCH ×2 (07:51→17:31)
[2016-12-25] MEDS: LISINOPRIL 20 MG TAB PO SCH (07:51)
[2016-12-25] MEDS: SPIRONOLACTONE 25 MG TAB PO SCH (07:51)
[2016-12-25] MEDS: ASPIRIN 325 MG TAB PO SCH (07:51)
[2016-12-25] MEDS: FUROSEMIDE 40 MG TAB PO SCH (07:52)
[2016-12-25] MEDS: amLODIPine 2.5 MG TAB PO SCH (07:52)
[2016-12-25] MEDS: ENOXAPARIN 30 MG/0.3 ML SYRINGE SQ SCH (07:53)
[2016-12-25] MEDS: IBUPROFEN 600 MG TAB PO SCH (07:59)
[2016-12-25 09:02] LABS: Calcium 9.4 mg/dL (8.4-10.2); Potassium 4.8 mmol/L (3.5-5.1); Total Bilirubin 1.1 mg/dL (0.2-1.3); Total Protein 7.2 g/dL (6.3-8.2)
[2016-12-25 12:28] LABS: Glucose,Whole Blood 242 mg/dL (75-99)
[2016-12-25] MEDS: ZINC SULFATE 220 MG CAP PO SCH (12:28)
[2016-12-25 16:53] LABS: Glucose,Whole Blood 91 mg/dL (75-99)
--- NOTE | 2016-12-25 17:01 | PN ---
DATE OF SERVICE: 12/25/2016 CHIEF COMPLAINT: Congestive heart failure. HISTORY OF PRESENT ILLNESS: This gentleman is doing a little bit better and he is not short of breath. PHYSICAL EXAMINATION: Breath sounds are much improved. There are few rales and rhonchi. The cardiac exam is unremarkable. Abdomen is soft. IMPRESSION: Congestive heart failure. PLAN: Continue with diuresis and management of his CHF. He is increasing his activity and he will probably be able to go home in 2 to 3 days.
[2016-12-25] MEDS: DOCUSATE 100 MG CAP PO SCH (20:09)
[2016-12-25] MEDS: GLIMEPIRIDE 1 MG TAB PO SCH (20:09)
[2016-12-25] MEDS: CHOLECALCIFEROL 1,000 UNIT TAB PO SCH (20:09)
[2016-12-25] MEDS: ATORVASTATIN 20 MG TAB PO SCH (20:09)
[2016-12-25] MEDS: HEPARIN SODIUM,PORCINE 5,000 UNIT/ML 1 ML VIAL SQ SCH (20:10)
[2016-12-25] MEDS: MONTELUKAST 10 MG TAB PO SCH (20:10)
[2016-12-25 21:42] LABS: Glucose,Whole Blood 145 mg/dL (75-99)
[2016-12-26] MEDS: methylPREDNISolone SOD SUCCI 40 MG/ML 1 ML VIAL IV SCH ×4 (00:25→23:12)
[2016-12-26 07:06] LABS: Glucose,Whole Blood 134 mg/dL (75-99)
[2016-12-26] MEDS: BUDESONIDE 0.5 MG/2 ML NEBU INHALATION SCH ×2 (08:14→21:07)
[2016-12-26] MEDS: IPRATROPIUM-ALBUTEROL 3 ML NEB INHALATION SCH ×4 (08:14→21:02)
[2016-12-26] MEDS: CARVEDILOL 3.125 MG TAB PO SCH ×2 (08:31→17:32)
[2016-12-26] MEDS: INSULIN LISPRO (humaLOG) 300 UNIT/3 ML VIAL SQ SCH ×4 (08:31→21:43)
[2016-12-26] MEDS: FUROSEMIDE 40 MG TAB PO SCH (09:22)
[2016-12-26] MEDS: amLODIPine 2.5 MG TAB PO SCH (09:22)
[2016-12-26] MEDS: ASPIRIN 325 MG TAB PO SCH (09:22)
[2016-12-26] MEDS: SPIRONOLACTONE 25 MG TAB PO SCH (09:22)
[2016-12-26] MEDS: PIPERACILLIN-TAZOBACTAM 3.375 GM in DEXTROSE/WATER 1 50ML.BAG IVPB SCH ×3 (09:22→23:12)
[2016-12-26] MEDS: LISINOPRIL 20 MG TAB PO SCH (09:22)
[2016-12-26] MEDS: HEPARIN SODIUM,PORCINE 5,000 UNIT/ML 1 ML VIAL SQ SCH ×2 (09:22→21:15)
[2016-12-26 10:16] LABS: Calcium 9.7 mg/dL (8.4-10.2); Potassium 4.7 mmol/L (3.5-5.1); Total Bilirubin 1.1 mg/dL (0.2-1.3); Total Protein 7.1 g/dL (6.3-8.2)
--- NOTE | 2016-12-26 11:21 | PN ---
DATE OF SERVICE: 12/25/2016 ADDENDUM: It appears that acute renal failure, has been associated with NSAID as they have been started on scheduled doses since December 22. Renal function on December 21 was 26/1.31. BUN and creatinine went up to 16 and 2.36. We will discontinue the NSAIDs for now and maintain on the KOBI inhibitors and monitor renal functions closely. Will maintain her current dose of diuretics as well. Will follow.
--- NOTE | 2016-12-26 11:21 | PN ---
Mr. Pina is a pleasant 89-year-old male who was seen, evaluated, examined on fourth floor. His respiratory status is relatively much better. Breathing more comfortably. Denies any chest pain. He remains on broad-spectrum antibiotics. His last set of vitals include blood pressure is 139/73, respiratory rate 18, pulse 70, temperature 98, sating 95%. HEENT: Unremarkable. NECK: Supple. LUNGS: Good air entry bilaterally with very fine expiratory wheezing. HEART: Regular rate and rhythm. S1 and S2 audible. ABDOMEN: Soft. No rebound or rigidity. EXTREMITIES: +1 peripheral pulses. NEUROLOGICAL EXAMINATION: Otherwise, awake and alert. Sputum studies revealed normal respiratory baljit. The blood cultures no growth so far. Other laboratory data reviewed. Chemistry shows BUN and creatinine 72 and 2.06, which is slowly improving. Creatinine is down from 2.36 48 hours ago. Medications reviewed and include: DuoNeb unit dose 4 times a day, amlodipine 2.5 mg daily, aspirin 325 mg daily, Lipitor 20 mg daily, Pulmicort 2 times a day, Coreg 3.125 mg 2 times a day, vitamin D3, Colace, Lovenox, Lasix 40 mg daily, Amaryl 1 mg at bedtime, Motrin, sliding scale insulin, Levaquin 500 mg every other day, Zestril, Solu-Medrol 40 q.8, Zosyn 3.375 q.12 hourly, Aldactone and zinc. The duplex ultrasound of the lower extremity is negative for DVT bilaterally. VQ scan performed 12/23/16 matched defects in right base are seen. The chest x-ray performed on 12/22/16 reviewed as well; cardiomegaly, small right pleural effusion is seen and basal subsegmental atelectasis, which could explain findings on the VQ scan. IMPRESSION: 1. Right lower lobe pneumonia. Continue broad-spectrum antibiotics. 2. Small bilateral pleural effusion likely related to above as well as component of congestive heart failure, likely acute on chronic diastolic heart failure. 3. Dyslipidemia. 4. Coronary artery disease. 5. Small bilateral pleural effusion. 6. Chronic persistent asthma. PLAN AND RECOMMENDATION: Continue antibiotics, steroids, breathing treatment. Continue supportive care. Will maintain patient on DVT and peptic ulcer disease prophylaxis. Monitor renal functions closely. Will follow.
[2016-12-26 11:52] LABS: Glucose,Whole Blood 170 mg/dL (75-99)
[2016-12-26] MEDS: ZINC SULFATE 220 MG CAP PO SCH (12:17)
[2016-12-26 17:29] LABS: Glucose,Whole Blood 210 mg/dL (75-99)
[2016-12-26] MEDS: CHOLECALCIFEROL 1,000 UNIT TAB PO SCH (21:15)
[2016-12-26] MEDS: MONTELUKAST 10 MG TAB PO SCH (21:15)
[2016-12-26] MEDS: DOCUSATE 100 MG CAP PO SCH (21:15)
[2016-12-26] MEDS: ATORVASTATIN 20 MG TAB PO SCH (21:15)
[2016-12-26 21:35] LABS: Glucose,Whole Blood 156 mg/dL (75-99)
[2016-12-26] MEDS: GLIMEPIRIDE 1 MG TAB PO SCH (21:43)
[2016-12-27 07:17] LABS: Glucose,Whole Blood 136 mg/dL (75-99)
[2016-12-27 07:46] VITALS: BP 155/76; RESP 19; TEMP 96.9
[2016-12-27] MEDS: methylPREDNISolone SOD SUCCI 40 MG/ML 1 ML VIAL IV SCH (07:50)
[2016-12-27] MEDS: LISINOPRIL 20 MG TAB PO SCH (07:51)
[2016-12-27] MEDS: amLODIPine 2.5 MG TAB PO SCH (07:51)
[2016-12-27] MEDS: LEVOFLOXACIN 500 MG TAB PO SCH (07:51)
[2016-12-27] MEDS: FUROSEMIDE 40 MG TAB PO SCH (07:52)
[2016-12-27] MEDS: CARVEDILOL 3.125 MG TAB PO SCH (07:52)
[2016-12-27] MEDS: SPIRONOLACTONE 25 MG TAB PO SCH (07:52)
[2016-12-27] MEDS: INSULIN LISPRO (humaLOG) 300 UNIT/3 ML VIAL SQ SCH ×2 (07:52→12:00)
[2016-12-27] MEDS: ASPIRIN 325 MG TAB PO SCH (07:52)
[2016-12-27] MEDS: HEPARIN SODIUM,PORCINE 5,000 UNIT/ML 1 ML VIAL SQ SCH (07:53)
[2016-12-27] MEDS: PIPERACILLIN-TAZOBACTAM 3.375 GM in DEXTROSE/WATER 1 50ML.BAG IVPB SCH (08:26)
[2016-12-27] MEDS: IPRATROPIUM-ALBUTEROL 3 ML NEB INHALATION SCH (08:29)
[2016-12-27] MEDS: BUDESONIDE 0.5 MG/2 ML NEBU INHALATION SCH (08:29)
--- NOTE | 2016-12-27 08:43 | PN ---
An 89-year-old male, seen, evaluated, examined on fourth floor. Patient is doing slightly better. Cough, congestion and shortness of breath have improved. He has been treated with broad-spectrum antibiotics. The patient was noted to have worsening of renal failure. NSAID has been discontinued. He has been found to have right lower lobe pneumonia, small pleural effusion, and congestive heart failure, likely related diastolic heart failure. He has problems associated with coronary artery disease, dyslipidemia and chronic persistent asthma of moderate to severe category. He is sitting upright, breathing comfortably. No obvious distress present. Blood pressure is 133/69, respiratory rate is 18, pulse 71, temperature is 97, saturation 94%. HEENT EXAMINATION: Otherwise unremarkable. NECK: Supple. LUNGS: Good air entry bilaterally. HEART: Regular rate and rhythm. S1 and S2 audible. ABDOMEN: Soft. No rebound or rigidity. EXTREMITIES: +1 peripheral pulses. NEUROLOGICAL EXAMINATION: Otherwise, awake and alert. LABORATORY DATA: Reviewed. Sodium is 145, potassium is 4.7. BUN and creatinine down to 62 and 1.7. Glucose is 152. The rest of his chemistries are within normal limits. Culture results and reports are reviewed. Sputum culture, few gram-positive cocci are seen; final ID, however, is pending. CURRENT MEDICATIONS: 1. DuoNeb unit dose 4 times a day and as needed. 2. Norvasc 2.5 mg daily. 3. Aspirin 81 mg daily or 325 mg daily. 4. Lipitor 20 mg daily. 5. Pulmicort 2 times a day. 6. Coreg 3.125 daily. 7. Vitamin D. 8. Colace. 9. Lasix. 10. Amaryl. 11. Heparin for DVT. 12. Sliding scale insulin. 13. Solu-Medrol 40 every 8. 14. Zosyn. 15. Aldactone. 16. Zinc. The last chest x-ray performed on 12/22 reviewed and compared with the prior x-ray, revealed cardiomegaly, interstitial edema and basal pneumonia more so on the right side compared to the left side. IMPRESSION: 1. Right lower lobe pneumonia. 2. Acute exacerbation of congestive heart failure. 3. Renal failure, stage III to IV, likely related to NSAIDs, which have been discontinued now. The patient is being monitored and observed. Continue breathing treatments, steroids and antibiotics. Follow clinical course closely. Monitor renal functions closely.
--- NOTE | 2016-12-27 10:41 | P.PN ---
Subjective This is an 89-year-old male patient is being evaluated and examined today on the fourth floor. This patient originally came into the emergency room for severe shortness of breath. The patient had a history of chronic persistent asthma. Stress of breath gets worse with activity and his breathing treatments have not been helping at home. Patient was subsequently admitted to the hospital with acute exacerbation of COPD, community-acquired pneumonia with hypoxia, diastolic congestive heart failure and acute respiratory failure. Patient underwent permanent perfusion test and there was an intermediate probability of pulmonary embolism based on the PIOPED .. Patient is currently on Lovenox. Doppler studies of bilateral lower x-rays were both negative for DVTs. Upon examination the patient is resting up in bed on room air. The patient states he is no longer coughing. Objective - Vital Signs Vital signs: Vital Signs Temp 96.9 F L 12/27/16 07:00 Pulse 74 12/27/16 08:48 Resp 19 12/27/16 07:00 BP 155/76 12/27/16 07:00 Pulse Ox 95 12/27/16 08:30 Intake & Output 12/26/16 12/27/16 12/27/16 18:59 06:59 18:59 Intake Total 50 500 Balance 50 500 Intake: Intake, IV Titration 50 Amount Piperacillin-Tazobactam 3 50 .375 gm In Dextrose/Water 1 50ml.bag @ 12.5 mls/hr IVPB Q12HR [facility] Rx#: [id number] Oral 500 Other: Voiding Method Toilet # Voids 1 1 # Bowel Movements 1 1 - Exam GENERAL EXAM: Alert, active, comfortable in no apparent distress. HEAD: Normocephalic. EYES: Normal reaction of pupils, equal size. NOSE: Clear with pink turbinates. THROAT: No erythema or exudates. NECK: No masses, no JVD. CHEST: No chest wall deformity. LUNGS: Lung sounds noticed a decreased throughout some faint expiratory wheezing noted. CVS: S1 and S2 normal with no audible mumurs, regular rhythm. ABDOMEN: No hepatosplenomegaly, normal bowel sounds, no guarding or rigidity. EXTREMITIES: No edema noted, pedal pulses palpable. SKIN: No rashes CENTRAL NERVOUS SYSTEM: No focal deficits, tone is normal in all 4 extremities. - Labs CBC & Chem 7: 12/23/16 08:52 12/26/16 08:39 Labs: Abnormal Lab Results - Last 24 Hours (Table) 12/26/16 12/26/16 12/26/16 Range/Units 11:48 16:49 21:22 POC Glucose (mg/dL) 170 H 210 H 156 H (75-99) mg/dL 12/27/16 Range/Units 07:03 POC Glucose (mg/dL) 136 H (75-99) mg/dL Microbiology - Last 24 Hours (Table) 12/24/16 03:57 Gram Stain - Final Sputum Sputum Culture - Final Assessment and Plan Plan: Assessment Acute exacerbation of chronic obstructive pulmonary disease Chronic persistent asthma with acute exacerbation Small bilateral pleural effusions Right lower lobe community-acquired pneumonia History of hypertension Acute exacerbation of congestive heart failure. Renal failure, stage III or 4X a related to NSAID use. Plan Patient could be discharged home from a pulmonary standpoint. Medications have been reviewed and will be continued as ordered. We will continue to monitor labs and adjust treatment as necessary. We will follow-up with this patient in the outpatient setting within 1 week of discharge. I performed an examination of the patient and discussed their management with the nurse practitioner. I have reviewed the nurse practitioner's note and agree with the documented findings and plan of care.
[2016-12-27 10:52] VITALS: PULSE 96
--- NOTE | 2016-12-27 12:07 | P.DS ---
Providers Date of admission: 12/21/16 21:37 Expected date of discharge: 12/27/16 Attending physician: Donal Morris Consults: 12/23/16 15:31 Consult Physician Stat Consulting Provider: Luis Quezada Consult Reason/Comments: known to service Do you want consulting provider notified?: Yes Primary care physician: Donal Morris Hospital Course: 89-year-old male who presented on the day of admission to the emergency room on December 21 with a chief complaint of developing shortness of breath increase edema to the bilateral lower extremities. Subsequently the patient was hospitalized a pulmonology consultation was requested. Patient was treated this admission for an acute exacerbation of COPD with community acquired pneumonia right lower lobe with acute decompensated diastolic heart failure. Patient did undergo a pulmonary perfusion test which showed an intermediate probability of a pulmonary emboli based on PIOPED criteria. Doppler studies to the bilateral lower extremities were negative for evidence of a DVT. Patient does not use oxygen at home and did not qualify for home oxygen on room air with activity ambulating on the unit with the pulse ox on nursing documented that the sats were greater than 94% on admission the patient started on IV steroids antibiotics and nebulizer treatment and supplemental oxygen. Pulmonary reviewed the VQ scan and felt that the small right pleural effusion that was seen in the basal subsegmental atelectasis could explain the findings on the VQ scan. Patient was not started on anticoagulation as there was felt not to be evidence of a pulmonary emboli It was also noted on this admission the patient was on NSAIDS which were stopped the BUN/creatinine when up monitoring renal status closely there was a noted improvement after the course of the hospitalization the steroids were able to be titrated to an oral antibiotics continued monitoring the renal status showed a significant improvement after stopping the nephrotoxin meds and at the time of discharge the creatinine was down to 1.7 patient felt like his breathing was back to his baseline felt to be appropriate to be discharged home Impression discharge diagnosis Present on admission shortness of breath multifactorial suspect due to a community-acquired right lower lobe pneumonia and decompensated diastolic heart failure with acute exacerbation of COPD Dyslipidemia Chronic persistent asthma with acute exacerbation Chronic debility Hearing deficit Echocardiogram September 2016 left ventricular systolic function normal with an EF between 55 and 60% no evidence of pulmonary hypertension Chronic diastolic congestive heart failure Acute renal failure stage III likely due to NSAIDS Small bilateral pleural effusion COPD chronic Essential hypertension The above dictated assessment and findings were discussed with dr morris. Impression and the plan of care have been dictated as directed. Alisia Bryan nurse practitioner acting as a scribe for dr morris Patient Condition at Discharge: Serious Plan - Discharge Summary New Discharge Prescriptions: Budesonide [Pulmicort Flexhaler] 2 puff INHALATION BID #1 inhaler Carvedilol [Coreg] 3.125 mg PO BID-W/MEALS #60 tab Furosemide [Lasix] 40 mg PO DAILY #30 tab Levofloxacin [Levaquin] 500 mg PO Q48H #7 tab Lisinopril [Zestril] 20 mg PO DAILY #30 tab Montelukast [Singulair] 10 mg PO HS #30 tab Spironolactone [Aldactone] 25 mg PO DAILY #30 tab amLODIPine [Norvasc] 2.5 mg PO DAILY #30 tab methylPREDNISolone Dose Pack [Medrol Dose Pack] 4 mg PO DIRECTED #21 package Discharge Medication List Aspirin EC [Ecotrin] 325 mg PO DAILY 09/14/16 [History] Cholecalciferol [Vitamin D3] 2,000 unit PO HS 09/14/16 [History] Docusate [Colace] 100 mg PO HS 09/14/16 [History] Simvastatin [Zocor] 40 mg PO HS 09/14/16 [History] Zinc 50 mg PO DAILY 09/14/16 [History] Ipratropium-Albuterol Nebulize [Duoneb 0.5 mg-3 mg/3 ml Soln] 3 ml INHALATION RT -QID ampul.neb 09/21/16 [Rx] Glimepiride [Amaryl] 1 mg PO HS 12/21/16 [History] Budesonide [Pulmicort Flexhaler] 2 puff INHALATION BID #1 inhaler 12/27/16 [Rx] Carvedilol [Coreg] 3.125 mg PO BID-W/MEALS #60 tab 12/27/16 [Rx] Furosemide [Lasix] 40 mg PO DAILY #30 tab 12/27/16 [Rx] Levofloxacin [Levaquin] 500 mg PO Q48H #7 tab 12/27/16 [Rx] Lisinopril [Zestril] 20 mg PO DAILY #30 tab 12/27/16 [Rx] Montelukast [Singulair] 10 mg PO HS #30 tab 12/27/16 [Rx] Spironolactone [Aldactone] 25 mg PO DAILY #30 tab 12/27/16 [Rx] amLODIPine [Norvasc] 2.5 mg PO DAILY #30 tab 12/27/16 [Rx] methylPREDNISolone Dose Pack [Medrol Dose Pack] 4 mg PO DIRECTED #21 package 12/27/16 [Rx] Follow up Appointment(s)/Referral(s): Donal Morris MD [Primary Care Provider] - 1-2 days [facility], [NON-STAFF] - Luis Quezada MD [STAFF PHYSICIAN] - 1 Week Activity/Diet/Wound Care/Special Instructions: Low salt Cardiac diet. Daily weights and record notify the attending in the weight gain over 3-4 pounds in 24 hours Discharge Disposition: HOME WITH HOME HEALTH SERVICES
[2016-12-27] MEDS: ZINC SULFATE 220 MG CAP PO SCH (12:17)
--- NOTE | 2016-12-27 21:29 | PN ---
DATE OF SERVICE: 12/26/2016 CHIEF COMPLAINT: Shortness of breath. HISTORY OF PRESENT ILLNESS: This gentleman continues to improve. He is still a little bit short of breath on ambulation without oxygen. He has had no chest pain. PHYSICAL EXAMINATION: CHEST: Clear but breath sounds are diminished in the bases. CARDIAC: Normal. ABDOMEN: Soft, nontender. IMPRESSION: 1. Congestive heart failure. 2. Chronic obstructive pulmonary disease. PLAN: Continue to increase activity and possibly home tomorrow.
--- NOTE | 2016-12-27 21:58 | PN ---
DATE OF SERVICE: 12/27/2016 CHIEF COMPLAINT: Difficulty breathing. HISTORY OF PRESENT ILLNESS: This gentleman is doing better and feels that he could go home. He has been ambulating without much difficulty and doing that without oxygen. PHYSICAL EXAM: Chest is fairly clear. Breath sounds are clear. There are no rales or rhonchi. There is no wheezing. CARDIAC: Normal. ABDOMEN: Soft, nontender. IMPRESSION: 1. Congestive heart failure. 2. Chronic obstructive pulmonary disease. 3. Asthma. PLAN: Probably home today and this will be arranged by the nurse practitioner.
== END 2016-12-27 14:18 | disposition home health service (06) | DRG 291 ==
LOC: EC 19:47 → 4MS4W 21:37
PROVIDERS: ADMIT Family Medicine; ATTEND Family Medicine
DX: I11.0 Hypertensive heart disease with heart failure (principal); J18.9 Pneumonia, unspecified organism; J96.01 Acute respiratory failure with hypoxia; N17.9 Acute kidney failure, unspecified; J44.0 Chronic obstructive pulmonary disease with (acute) lower respiratory infection; J45.31 Mild persistent asthma with (acute) exacerbation; J44.1 Chronic obstructive pulmonary disease with (acute) exacerbation; I50.33 Acute on chronic diastolic (congestive) heart failure; E78.5 Hyperlipidemia, unspecified; I25.10 Atherosclerotic heart disease of native coronary artery without angina pectoris; T39.395A Adverse effect of other nonsteroidal anti-inflammatory drugs [NSAID], initial encounter; Z95.2 Presence of prosthetic heart valve; Z87.891 Personal history of nicotine dependence; Z79.899 Other long term (current) drug therapy; Z79.82 Long term (current) use of aspirin; Z79.84 Long term (current) use of oral hypoglycemic drugs; Z88.8 Allergy status to other drugs, medicaments and biological substances; Z96.60 Presence of unspecified orthopedic joint implant
CPT/HCPCS: 36415; 71020; 78582; 80053; 82550; 82553; 83036; 83605; 83735; 83880; 84484; 85025; 85379; 85610; 85730; 87040; 87070; 87205; 93005; 93970; 94640; 94644; 94760; 96361; 96374; 99291